=== PATIENT | male | born 1985 | race Caucasian/White ===

== ENCOUNTER 2018-10-18 12:40 | Emergency (ER) | payer OTHER ==
[2018-10-18] MEDS ORDERED: NS 0.9% 1000 ML** 1,000 ML IV ONE (14:33)
--- NOTE | 2018-10-18 14:38 | ED ---
Influenza-Like Illness - HPI Summary HPI Summary: Pt is a 33 y/o M presenting to the ED with a chief complaint of flu symptoms. He had one beer on the night of 10/15/18, woke up the next morning around 0700 feeling hungover. He reports diarrhea, stomach cramps, and muscle aches. Chills and fever onset around 1900 the same day, and when he got home he noticed his diarrhea was black and he had a fever. 10/17/18 it was the same, and he noticed water would go straight through him. He also reports extreme diaphoresis, intermittent nausea, and ankle/knee soreness. He denies cough or congestion. - History of Current Complaint Chief Complaint: EDFluSymptoms Time Seen by Provider: 10/18/18 14:13 Hx Obtained From: Patient Onset/Duration: Sudden Onset, Lasting Days, Still Present Severity: Moderate Associated Signs & Symptoms: Fever, Myalgia, Vomiting, Diarrhea - Allergy/Home Medications Allergies/Adverse Reactions: Allergies Allergy/AdvReac Type Severity Reaction Status Date / Time No Known Allergies Allergy Verified 10/18/18 12:55 PMH/Surg Hx/FS Hx/Imm Hx Previously Healthy: Yes Endocrine/Hematology History: Denies: Hx Diabetes Cardiovascular History: Denies: Hx Hypotension GI History: Reports: Other GI Disorders - diverticulitis Infectious Disease History: No Infectious Disease History: Denies: Traveled Outside the [place] in Last 30 Days - Family History Known Family History: Negative: Hypertension, Diabetes - Social History Lives: With Family Alcohol Use: Occasionally Hx Substance Use: No Substance Use Type: Reports: None Hx Tobacco Use: No Smoking Status (MU): Never Smoked Tobacco Review of Systems Positive: Fever, Chills, Skin Diaphoresis Negative: Cough Positive: Abdominal Pain, Diarrhea, Nausea Positive: Arthralgia, Myalgia All Other Systems Reviewed And Are Negative: Yes Physical Exam - Summary Physical Exam Summary: Appearance: The patient is pale, in no acute distress and in no acute pain. Skin: The skin is warm and dry and skin color reflects adequate perfusion. HEENT: The head is normocephalic and atraumatic. The pupils are equal and reactive. The conjunctivae are clear and without drainage. Nares are patent and without drainage. Mouth reveals moist mucous membranes and the throat is without erythema and exudate. The external ears are intact. The ear canals are patent and without drainage. The tympanic membranes are intact. Neck: The neck is supple with full range of motion and non-tender. There are no carotid bruits. There is no neck vein distension. Respiratory: Chest is non-tender. Lungs are clear to auscultation and breath sounds are symmetrical and equal. Cardiovascular: Heart is regular rate and rhythm. There is no murmur or rub auscultated. There is no peripheral edema and pulses are symmetrical and equal. Abdomen: The abdomen is soft and non-tender. There are normal bowel sounds heard in all four quadrants and there is no organomegaly palpated. Musculoskeletal: There is no back tenderness noted. Extremities are non-tender with full range of motion. There is good capillary refill. There is no peripheral edema or calf tenderness elicited. Neurological: Patient is alert and oriented to person, place and time. The patient has symmetrical motor strength in all four extremities. Cranial nerves are grossly intact. Deep tendon reflexes are symmetrical and equal in all four extremities. Psychiatric: The patient has an appropriate affect and does not exhibit any anxiety or depression. Triage Information Reviewed: Yes Vital Signs On Initial Exam: Initial Vitals Temp Pulse Resp BP Pulse Ox 100.4 F 82 16 142/79 99 10/18/18 12:53 10/18/18 12:53 10/18/18 12:53 10/18/18 12:53 10/18/18 12:53 Vital Signs Reviewed: Yes Diagnostics - Vital Signs Vital Signs Temp Pulse Resp BP Pulse Ox 10/18/18 12:53 100.4 F 82 16 142/79 99 - Laboratory Result Diagrams: 10/18/18 14:44 10/18/18 14:44 Lab Statement: Any lab studies that have been ordered have been reviewed, and results considered in the medical decision making process. Flu Symptom Course/Dx - Course Course Of Treatment: Mr. Monae presents complaining of a couple days of crampy abdominal pain with watery diarrhea that is black. He is taking Pepto- Bismol. He has mild nausea but no vomiting. He was nontoxic in appearance and his vital signs were stable on arrival. IV was initiated and was given IV fluid while labs were obtained and found to be within normal limits. Influenza was negative. This is likely a viral or bacterial self-limiting gastroenteritis and I recommended some symptomatic treatment of Bentyl for his crampiness. - Diagnoses Provider Diagnoses: Gastroenteritis Discharge - Sign-Out/Discharge Documenting (check all that apply): Patient Departure Patient Received Moderate/Deep Sedation with Procedure: No - Discharge Plan Condition: Stable Disposition: HOME Prescriptions: Dicyclomine CAP* [Bentyl CAP*] 10 mg PO TID PRN #10 cap PRN Reason: Pain - Abdominal Forms: *Work Release Referrals: [facility] [Outside] Additional Instructions: Please take your prescribed medications as instructed. Follow up with your primary care provider in the next 2-3 days. Return to the emergency department with any new or worsening symptoms. - Billing Disposition and Condition Condition: STABLE Disposition: Home - Attestation Statements Document Initiated by Scribe: Yes Documenting Scribe: Eden Gould Provider For Whom Douglas is Documenting (Include Credential): Armando Pimentel MD. Scribe Attestation: Eden Torres scribed for Armando Pimentel MD. on 10/18/18 at 1748. Scribe Documentation Reviewed: Yes Provider Attestation: The documentation as recorded by the Eden perales accurately reflects the service I personally performed and the decisions made by , Armando Pimentel MD. Status of Scribe Document: Viewed
[2018-10-18 14:54] LABS: ABS Basophils 0 10^3/ul (0-0.2); ABS Eosinophils 0 10^3/ul (0-0.6); ABS Lymphocytes 0.8 10^3/ul (1.0-4.8); ABS Monocytes 0.4 10^3/ul (0-0.8); ABS Neutrophils 4.4 10^3/ul (1.5-7.7); ABS Nucleated RBC 0 10^3/ul; Eosinophil % 0.3 %; Hematocrit 44 % (42-52); Hemoglobin 15.3 g/dl (14.0-18.0); Lymphocyte % 14.3 %; Mean Corpuscular HGB Conc 35 g/dl (31-36); Mean Corpuscular Hemoglobin 30 pg (27-31); Mean Corpuscular Volume 86 fL (80-94); Mean Platelet Volume 6.7 fL (7.4-10.4); Nucleated Red Blood Cells % 0; Platelet Count 160 10^3/ul (150-450); Red Blood Count 5.17 10^6/ul (4.00-5.40); Red Cell Distribution Width 14 % (10.5-15); White Blood Count 5.7 10^3/ul (3.5-10.8)
[2018-10-18 15:02] LABS: INR 1.01 (0.77-1.02)
[2018-10-18 15:10] LABS: Influenza A Molecular NEGATIVE (Negative); Influenza B Molecular NEGATIVE (Negative)
[2018-10-18 15:17] LABS: Albumin 4.7 g/dL (3.2-5.2); Albumin/Globulin Ratio 2.1 (1-3); BUN/Creatinine Ratio 11.8 (8-20); C Reactive Protein 58.95 mg/L (<8.01); Calcium 9.3 mg/dL (8.6-10.3); EGFR African American 114.7 (>60); EGFR Non-African American 94.8 (>60); Globulin 2.2 g/dL (2-4); Potassium 4.1 mmol/L (3.5-5.0); Total Bilirubin 0.5 mg/dL (0.2-1.0); Total Protein 6.9 g/dL (6.4-8.9)
[2018-10-18 17:22] VITALS: BP 118/70
== END 2018-10-18 17:19 | disposition home or self-care (01) ==
LOC: ED 12:40
DX: K52.9 Noninfective gastroenteritis and colitis, unspecified (principal); R50.9 Fever, unspecified; M79.10 Myalgia, unspecified site
CPT/HCPCS: 36415; 80053; 83605; 85025; 85610; 86140; 96360; 96361; 99282